=== PATIENT | female | born 1945 | race Caucasian/White ===

== ENCOUNTER 2017-01-03 11:34 | Outpatient (CLI) | payer MEDICARE, OTHER ==
--- NOTE | 2017-01-04 16:42 | Mammography Report ---
DIGITAL SCREENING MAMMOGRAM: 01/03/2017 CLINICAL INDICATION: A 71-year-old with family history of breast cancer, history of benign aspiratio n for screening. COMPARISON: 10/2015, 09/2014, 07/2013, 05/2012, 09/2010, 05/2009. TECHNIQUE: Routine CC and MLO projections were obtained of the breasts. FINDINGS: Scattered fibroglandular tissue is present within the breasts. There are no dominant mass es, suspicious microcalcifications, or secondary signs of malignancy. In comparison to the previous studies, there are no significant changes. ASSESSMENT: NO MAMMOGRAPHIC EVIDENCE OF MALIGNANCY. NO SIGNIFICANT INTERVAL CHANGES. RECOMMENDATION: Screening mammography is recommended annually. BIRADS category 1 - negative. STANDARD QUALIFYING STATEMENTS 1. This examination was reviewed with the aid of Computed-Aided Detection (CAD). 2. A negative or benign imaging report should not delay biopsy if clinically suspicious findings are present. Consider surgical consultation if warranted. More than 5% of cancers are not identified b y imaging. 3. Dense breasts may obscure an underlying neoplasm. JOB #: [id number] EXT JOB #:[id number]
== END 2017-01-03 11:35 | disposition home or self-care (01) ==
LOC: DI.S 11:34
PROVIDERS: ATTEND Physician Assistant Medical
DX: Z12.31 Encounter for screening mammogram for malignant neoplasm of breast (principal); Z80.3 Family history of malignant neoplasm of breast
CPT/HCPCS: 77067

== ENCOUNTER 2017-01-05 10:12 | Outpatient (CLI) | payer MEDICARE, OTHER ==
[2017-01-05 17:54] LABS: BASOPHILS # (AUTO) 0.1 10^3/uL (0.0-0.1); BASOPHILS % (AUTO) 1.1 %; EOSINOPHILS # (AUTO) 0.1 10^3/uL (0.0-0.7); EOSINOPHILS % (AUTO) 2.4 %; HCT - HEMATOCRIT 48.5 % (37.0-47.0); LYMPHOCYTES # (AUTO) 1.3 10^3/uL (1.5-3.5); LYMPHOCYTES % (AUTO) 30.6 %; MEAN CORPUSCULAR HEMOGLOBIN 29.2 pg (27.0-31.0); MEAN CORPUSCULAR VOLUME 88.7 fL (81.0-99.0); MEAN PLATELET VOLUME 10.5 fL (7.9-10.8); MONOCYTES # (AUTO) 0.3 10^3/uL (0.0-1.0); MONOCYTES % (AUTO) 6.5 %; NEUTROPHILS # (AUTO) 2.6 10^3/uL (1.5-6.6); NEUTROPHILS % (AUTO) 59.4 %; NUCLEATED RED BLOOD CELLS AUTO 0.1 /100WBC; RED BLOOD COUNT 5.47 10^6/uL (4.20-5.40); RED CELL DISTRIBUTION WIDTH 13.9 % (12.0-15.0); UNCORRECTED WHITE BLOOD COUNT 4.4 x10^3/uL; WHITE BLOOD COUNT 4.4 x10^3/uL (4.8-10.8)
[2017-01-05 18:47] LABS: ALBUMIN/GLOBULIN RATIO 1.5 (1.0-2.2); BILIRUBIN,TOTAL 1.1 mg/dL (0.2-1.0); BUN - BLOOD UREA NITROGEN 12 mg/dL (6-20); CALCIUM 9.4 mg/dL (8.5-10.3); CARBON DIOXIDE - CO2 24 mmol/L (21-32); CHLORIDE 109 mmol/L (101-111); CREATININE 0.8 mg/dL (0.4-1.0); GFR - MDRD 71 (>89); GLUCOSE 99 mg/dL (70-100); SODIUM 141 mmol/L (135-145); TOTAL PROTEIN 7.2 g/dL (6.7-8.2)
[2017-01-05 18:57] LABS: FERRITIN 42.1 ng/mL (11.0-306.8)
[2017-01-05 19:10] LABS: THYROID STIMULATING HORMONE 2.76 uIU/mL (0.34-5.60)
== END 2017-01-05 10:13 | disposition home or self-care (01) ==
LOC: LAB.F 10:12
PROVIDERS: ATTEND Physician Assistant Medical
DX: Z51.81 Encounter for therapeutic drug level monitoring (principal); E83.119 Hemochromatosis, unspecified; R53.83 Other fatigue; E55.9 Vitamin D deficiency, unspecified; E06.3 Autoimmune thyroiditis
CPT/HCPCS: 36415; 80053; 82306; 82728; 84443; 85025

== ENCOUNTER 2017-11-21 11:33 | Outpatient (CLI) | payer MEDICARE, OTHER ==
[2017-11-21 17:45] LABS: BASOPHILS # (AUTO) 0.1 10^3/uL (0.0-0.1); BASOPHILS % (AUTO) 1.3 %; EOSINOPHILS # (AUTO) 0.1 10^3/uL (0.0-0.7); EOSINOPHILS % (AUTO) 2.2 %; HGB - HEMOGLOBIN 15.7 g/dL (12.0-16.0); LYMPHOCYTES # (AUTO) 1.4 10^3/uL (1.5-3.5); LYMPHOCYTES % (AUTO) 29.5 %; MEAN CORPUSCULAR HEMOGLOBIN 29.6 pg (27.0-31.0); MEAN CORPUSCULAR HGB CONC 33.2 g/dL (32.0-36.0); MEAN CORPUSCULAR VOLUME 89.1 fL (81.0-99.0); MEAN PLATELET VOLUME 9.8 fL (7.9-10.8); MONOCYTES # (AUTO) 0.3 10^3/uL (0.0-1.0); MONOCYTES % (AUTO) 6.4 %; NEUTROPHILS # (AUTO) 2.9 10^3/uL (1.5-6.6); NEUTROPHILS % (AUTO) 60.6 %; PLT - PLATELET COUNT 191 10^3/uL (130-450); RED CELL DISTRIBUTION WIDTH 14.1 % (12.0-15.0); WHITE BLOOD COUNT 4.8 x10^3/uL (4.8-10.8)
[2017-11-21 18:09] LABS: HB2 TOTAL 16.9 g/dL; HEMOGLOBIN A1C 0.54 g/dL; HEMOGLOBIN A1C % 5.1 % (4.6-6.2)
[2017-11-21 18:15] LABS: THYROID STIMULATING HORMONE 2.57 uIU/mL (0.34-5.60)
[2017-11-21 18:16] LABS: ALBUMIN 3.8 g/dL (3.2-5.5); ALBUMIN/GLOBULIN RATIO 1.2 (1.0-2.2); ALKALINE PHOSPHATASE 49 IU/L (42-121); ALT ALANINE AMINOTRANSFERASE 27 IU/L (10-60); AST ASPARTATE AMINOTRANSFERASE 20 IU/L (10-42); BILIRUBIN,TOTAL 0.9 mg/dL (0.2-1.0); BUN - BLOOD UREA NITROGEN 15 mg/dL (6-20); CALCIUM 9.3 mg/dL (8.5-10.3); CARBON DIOXIDE - CO2 27 mmol/L (21-32); CHLORIDE 107 mmol/L (101-111); CHOL/HDL RATIO 3.6 (<4.4); CHOLESTEROL 184 mg/dL; CREATININE 0.9 mg/dL (0.4-1.0); GFR - MDRD 62 (>89); GLUCOSE 90 mg/dL (70-100); HDL CHOLESTEROL 51 mg/dL; LDL CHOLESTEROL,CALCULATED 100 mg/dL; SODIUM 139 mmol/L (135-145); TOTAL PROTEIN 7.1 g/dL (6.7-8.2); VLDL CHOLESTEROL 33 mg/dL
== END 2017-11-21 11:34 | disposition home or self-care (01) ==
LOC: LAB.F 11:33
PROVIDERS: ATTEND Physician Assistant Medical
DX: E78.5 Hyperlipidemia, unspecified (principal); Z51.81 Encounter for therapeutic drug level monitoring; E83.119 Hemochromatosis, unspecified; Z79.899 Other long term (current) drug therapy; R73.9 Hyperglycemia, unspecified; E06.3 Autoimmune thyroiditis
CPT/HCPCS: 36415; 80053; 80061; 82728; 83036; 83721; 84443; 85025

== ENCOUNTER 2018-01-03 13:03 | Outpatient (CLI) | payer MEDICARE, OTHER ==
--- NOTE | 2018-01-03 16:26 | DEXA Report ---
Procedure Date: 01/03/2018 Accession Number: [id number] / [id number] Procedure: DEX - Dexa Spine and/or Hip CPT Code: FULL RESULT: EXAM: Dexa Spine and/or Hip DATE: 01/03/2018 1:36 PM CLINICAL HISTORY: POSTMENOPAUSAL STATUS TECHNIQUE: Dual energy x-ray absorptiometry (DXA) was performed on a [employer] System. Regions measured are the AP Spine, femoral neck, and if needed forearm. COMPARISON: None. In accordance with the International Society for Clinical Densitometry (ISCD) guidelines, data from previous exams may be reanalyzed using current recommendations and techniques. This is done to allow a more accurate basis for comparison with the current study. FINDINGS: The data for the lumbar spine is as follows: BMD (g/cm/cm) T-SCORE Z-SCORE REGION L1 1.046 -0.7 -0.1 L2 1.046 -1.3 -0.7 L3 1.164 -0.3 0.3 L4 1.237 0.3 0.9 TOTAL 1.127 -0.4 0.1 NOTE: All evaluable vertebrae are used for classification The data for the hip is as follows: BMD (g/cm/cm) T-SCORE Z-SCORE REGION Neck 0.827 -1.5 -0.5 TOTAL 0.893 -0.9 -0.2 NOTE: The femoral neck or total proximal femur, whichever is lowest, is used for classification. DXA RESULTS SUMMARY: Spine SCAN DATE AGE BMD CHANGE VS CHANGE VS PREVIOUS PREVIOUS % [birth year][age]03/2018 [age] 1.127 0.042* 3.9* 11/18/2015 [age] 1[age]085 * Denotes significant change at the 95% confidence level. Denotes dissimilar scan types or analysis methods. DXA RESULTS SUMMARY: Hip SCAN DATE AGE BMD CHANGE VS CHANGE VS PREVIOUS PREVIOUS % 01[birth year]03/2018 [age] 0.893 0.007 0.8 11/18/2015 70.0 0.886 * Denotes significant change at the 95% confidence level. Denotes dissimilar scan types or analysis methods. IMPRESSION: THE WHO CLASSIFICATION BASED ON THE INTERNATIONAL REFERENCE STANDARD IS OSTEOPENIA. THE FRACTURE RISK IS INCREASED. RECOMMENDATION: Patients with diagnosis of osteoporosis or osteopenia should have regular bone mineral density assessment. For those eligible for Medicare, routine testing is allowed once every 2 years. Testing frequency can be increased for patients who have rapidly progressing disease or for those who are receiving medical therapy to restore bone mass. COMMENT: World Health Organization (WHO) definitions for osteoporosis and osteopenia: NORMAL BMD: T-score at -1.0 or higher, fracture risk is low OSTEOPENIA BMD: T-score between -1.0 and -2.5, fracture risk is increased. OSTEOPOROSIS BMD: T-score at -2.5 or lower, fracture risk is high. National Osteoporosis Foundation recommends: 1. Obtain adequate dietary calcium (at least 1200 mg per day) and vitamin D (400-800 international units per day). 2. Participate, as appropriate, in regular weightbearing and muscle-strengthening exercise. 3. Avoid tobacco use and reduce alcohol and caffeine intake. 4. For more detailed information see the website at www.NOF.org.
== END 2018-01-03 13:04 | disposition home or self-care (01) ==
LOC: DI 13:03
PROVIDERS: ATTEND Physician Assistant Medical
DX: M85.89 Other specified disorders of bone density and structure, multiple sites (principal); Z78.0 Asymptomatic menopausal state
CPT/HCPCS: 77080

== ENCOUNTER 2018-01-09 11:54 | Outpatient (CLI) | payer MEDICARE, OTHER ==
--- NOTE | 2018-01-10 17:20 | Mammography Report ---
Procedure Date: 01/09/2018 Accession Number: [id number] / [id number] Procedure: MGN - Screening Mammo Dig Bilat CPT Code: FULL RESULT: EXAM: Screening Mammo Dig Bilat DATE: 01/09/2018 12:12 PM CLINICAL HISTORY: 72-year-old female with history of early menses and family history of breast cancer in the mother at age 75 and sister at age 55. The patient had a breast biopsy in 2004 with benign pathology. TECHNIQUE: Bilateral CC and MLO views were obtained. COMPARISON: 01/03/2017, 11/10/2015, 10/07/2014, 08/21/2013. FINDINGS: The breasts demonstrate scattered fibroglandular densities bilaterally. There are typically benign coarse bilateral calcifications. No suspicious masses, clustered microcalcifications, or regions of architectural distortion are identified. IMPRESSION: Benign findings RECOMMENDATION: Routine annual screening unless otherwise clinically indicated. BIRADS CATEGORY 2: Benign findings STANDARD QUALIFYING STATEMENTS: 1. This examination was reviewed with the aid of Computer-Aided Detection (CAD). 2. A negative or benign imaging report should not delay biopsy if clinically suspicious findings are present. Consider surgical consultation if warrented. More than 5% of cancers are not identified by imaging. 3. Dense breasts may obscure an underlying neoplasm.
== END 2018-01-09 11:55 | disposition home or self-care (01) ==
LOC: DI.N 11:54
PROVIDERS: ATTEND Physician Assistant Medical
DX: Z12.31 Encounter for screening mammogram for malignant neoplasm of breast (principal); Z80.3 Family history of malignant neoplasm of breast
CPT/HCPCS: 77067

== ENCOUNTER 2018-01-24 11:59 | Outpatient (CLI) | payer MEDICARE, OTHER ==
--- NOTE | 2018-01-24 16:10 | MRI Report ---
Reason: CHRONIC LT HIP PAIN Procedure Date: 01/24/2018 Accession Number: [id number] / [id number] Procedure: MRI - Hip LT W/O CPT Code: FULL RESULT: EXAM: LEFT HIP MRI WITHOUT CONTRAST EXAM DATE: 01/24/2018 01:05 PM. CLINICAL HISTORY: Chronic left hip pain. COMPARISON: None. TECHNIQUE: Multiplanar, multisequence T1-weighted and fluid-sensitive, small clwrg-sf-kxdm sequences of the hip and large pqxad-lj-yijp sequences of the pelvis without contrast. Other: None. FINDINGS: Bones: No fractures or subluxations. No marrow edema or bone lesions. Left Hip: No acetabular retroversion. Femoral head/neck offset is within normal limits. No effusion or loose bodies. The articular cartilage is intact. The labrum is unremarkable on this nonarthrographic study. The ligamentum teres is intact. Other Joints: The visualized lumbar spine, sacroiliac joints, symphysis pubis, and contralateral hip are unremarkable. Musculature: No edema or fatty atrophy. The gluteus medius and minimus tendons are normal. The visualized hamstring tendons are normal. The ischiofemoral space is normal. Pelvic Cavity: No adenopathy, no masses. No free pelvic fluid. No adnexal masses. Submucosal anterior left lateral myoma. Series 301 image 28. Other: The visualized sciatic nerves are unremarkable. Lumbosacral plexus also normal. No bursitis. The subcutaneous tissues are unremarkable. IMPRESSION: 1. Left hip has a normal appearance. No fractures, no erosive changes. Labrum appears normal. No effusions. 2. Left lumbosacral plexus and sciatic nerve also is normal. No areas of abnormal increased T2 signal or nodularity. RADIA MUSCULOSKELETAL RADIOLOGY SECTION
== END 2018-01-24 12:00 | disposition home or self-care (01) ==
LOC: DI 11:59
PROVIDERS: ATTEND Orthopaedic Surgery
DX: M25.552 Pain in left hip (principal)

== ENCOUNTER 2018-09-09 11:28 | Outpatient (CLI) | payer MEDICARE, OTHER ==
[2018-09-09 18:39] LABS: ALBUMIN 4.1 g/dL (3.2-5.5); ALBUMIN/GLOBULIN RATIO 1.4 (1.0-2.2); BILIRUBIN,TOTAL 1.2 mg/dL (0.2-1.0); CALCIUM 9.5 mg/dL (8.5-10.3); CREATININE 0.8 mg/dL (0.4-1.0); TOTAL PROTEIN 7.1 g/dL (6.7-8.2)
[2018-09-09 18:44] LABS: THYROID STIMULATING HORMONE 3.53 uIU/mL (0.34-5.60)
== END 2018-09-09 11:29 | disposition home or self-care (01) ==
LOC: LAB.F 11:28
PROVIDERS: ATTEND Physician Assistant Medical
DX: Z51.81 Encounter for therapeutic drug level monitoring (principal); E83.119 Hemochromatosis, unspecified; E06.3 Autoimmune thyroiditis
CPT/HCPCS: 36415; 80053; 82728; 84443

== ENCOUNTER 2019-01-15 11:09 | Outpatient (CLI) | payer MEDICARE, OTHER ==
--- NOTE | 2019-01-15 14:07 | Mammography Report ---
Reason: SCREENING MAMMO Procedure Date: 01/15/2019 Accession Number: [id number] / [id number] Procedure: MGS - Screening Mammo Dig Bilat CPT Code: FULL RESULT: EXAM: Screening Mammo Dig Bilat DATE: 01/15/2019 11:32 AM CLINICAL HISTORY: Routine screening. No reported personal history of breast cancer. Family history breast cancer mother age 80 sister age 60. TECHNIQUE: (B) - Bilateral CC and MLO views were obtained. COMPARISON: 01/09/2018 through 10/07/2014 PARENCHYMAL PATTERN: (A) - The breasts demonstrate scattered fibroglandular densities bilaterally. FINDINGS: Bilateral breasts: Stable oval mass a circumscribed margins 12:00 left breast. There are no suspicious masses, calcifications, or areas of distortion. IMPRESSION: Benign findings. BI-RADS category 2. RECOMMENDATION: (ANNUAL) - Recommend routine annual screening mammography. Given family history, patient may be at increased risk for development of breast cancer. Formal risk assessment with a genetic counselor should be considered; patient may benefit from advanced screening practices and/or risk reduction strategies if there is sufficient assessed risk. BI-RADS CATEGORY: (2) - Benign Findings. STANDARD QUALIFYING STATEMENTS: 1. This examination was not reviewed with the aid of Computer-Aided Detection (CAD). 2. A negative or benign imaging report should not preclude biopsy if clinically suspicious findings are present. 3. Dense breasts may obscure an underlying neoplasm. 4. This examination was reviewed without the aid of 3D breast imaging (tomosynthesis).
== END 2019-01-15 11:10 | disposition home or self-care (01) ==
LOC: DI.S 11:09
DX: Z12.31 Encounter for screening mammogram for malignant neoplasm of breast (principal); Z80.3 Family history of malignant neoplasm of breast
CPT/HCPCS: 77067

== ENCOUNTER 2019-09-19 07:00 | Outpatient (CLI) | payer MEDICARE, OTHER ==
[2019-09-19 12:56] LABS: BASOPHILS # (AUTO) 0.1 10^3/uL (0.0-0.1); BASOPHILS % (AUTO) 1.1 %; EOSINOPHILS # (AUTO) 0.1 10^3/uL (0.0-0.7); EOSINOPHILS % (AUTO) 2.2 %; HGB - HEMOGLOBIN 15.8 g/dL (12.0-16.0); LYMPHOCYTES # (AUTO) 1.4 10^3/uL (1.5-3.5); LYMPHOCYTES % (AUTO) 30.4 %; MEAN CORPUSCULAR HEMOGLOBIN 29.2 pg (27.0-31.0); MEAN CORPUSCULAR HGB CONC 32.4 g/dL (32.0-36.0); MEAN CORPUSCULAR VOLUME 90.2 fL (81.0-99.0); MEAN PLATELET VOLUME 11.2 fL (7.9-10.8); MONOCYTES # (AUTO) 0.3 10^3/uL (0.0-1.0); MONOCYTES % (AUTO) 7.6 %; NEUTROPHILS # (AUTO) 2.6 10^3/uL (1.5-6.6); NEUTROPHILS % (AUTO) 58.3 %; PLT - PLATELET COUNT 211 10^3/uL (130-450); RED BLOOD COUNT 5.41 10^6/uL (4.20-5.40); RED CELL DISTRIBUTION WIDTH 13.5 % (12.0-15.0); WHITE BLOOD COUNT 4.5 x10^3/uL (4.8-10.8)
[2019-09-19 13:27] LABS: ALBUMIN 4.3 g/dL (3.2-5.5); ALBUMIN/GLOBULIN RATIO 1.5 (1.0-2.2); ALKALINE PHOSPHATASE 53 IU/L (42-121); ALT ALANINE AMINOTRANSFERASE 31 IU/L (10-60); AST ASPARTATE AMINOTRANSFERASE 22 IU/L (10-42); BILIRUBIN,TOTAL 1.2 mg/dL (0.2-1.0); BUN - BLOOD UREA NITROGEN 15 mg/dL (6-20); CALCIUM 9.3 mg/dL (8.5-10.3); CARBON DIOXIDE - CO2 27 mmol/L (21-32); CHLORIDE 107 mmol/L (101-111); CHOL/HDL RATIO 4.7 (<4.4); CHOLESTEROL 200 mg/dL; CREATININE 0.9 mg/dL (0.4-1.0); GLUCOSE 96 mg/dL (70-100); HDL CHOLESTEROL 43 mg/dL; LDL CHOLESTEROL,CALCULATED 134 mg/dL; LDL/HDL RATIO 3.1 (<4.4); SODIUM 140 mmol/L (135-145); TOTAL PROTEIN 7.2 g/dL (6.7-8.2); VLDL CHOLESTEROL 23 mg/dL
[2019-09-19 13:35] LABS: FERRITIN 60.5 ng/mL (11.0-306.8)
== END 2019-09-19 23:59 | disposition home or self-care (01) ==
LOC: LAB.WCP 07:00
PROVIDERS: ATTEND Registered Nurse
DX: K52.9 Noninfective gastroenteritis and colitis, unspecified (principal); Z87.19 Personal history of other diseases of the digestive system; E78.5 Hyperlipidemia, unspecified; R73.9 Hyperglycemia, unspecified; F32.9 Major depressive disorder, single episode, unspecified; F41.9 Anxiety disorder, unspecified
CPT/HCPCS: 36415; 80053; 80061; 82728; 83721; 84443; 85025

== ENCOUNTER 2019-12-12 14:49 | Outpatient (CLI) | payer MEDICARE, OTHER ==
--- NOTE | 2019-12-12 16:57 | XRAY Report ---
PROCEDURE: Knee 4 View BILAT INDICATIONS: KNEE JOINT PAIN TECHNIQUE: 4 views of the bilateral knee(s) were acquired. COMPARISON: None. FINDINGS: Bones: No fractures or dislocations. No suspicious bony lesions. There is moderate bilateral media l compartment narrowing. In addition, mild to moderate bilateral patellofemoral compartment narrowing is present. Small suprapatellar periarticular osteophytes are present slightly more prominent on the right. There are no areas of erosion present. Soft tissues: Mild bilateral joint effusions. No suspicious soft tissue calcifications. IMPRESSION: Moderate bilateral medial and mild to moderate patellofemoral compartment as above sugge stive of osteoarthritis. Reviewed by: Clary Fitzgerald MD on 12/12/2019 4:56 PM PDT Approved by: Clary Fitzgerald MD on 12/12/2019 4:56 PM PDT Station ID: [id number]
--- NOTE | 2019-12-12 16:58 | XRAY Report ---
PROCEDURE: Hip w/Pelvis 2-3V LT INDICATIONS: HIP PAIN,KNEE JOINT PAIN,ROTATOR CUFF SYNDROME TECHNIQUE: AP pelvis with lateral view(s) of the left hip(s). COMPARISON: MRI hip 01/24/2019 FINDINGS: Bones: No fractures or dislocations. Pelvic ring appears intact. No suspicious bony lesions. Mild bilateral degenerative hip joint space narrowing. Degenerative changes are present within the lower l umbar spine. Soft tissues: The visualized bowel gas pattern is normal. No suspicious soft tissue ca lcifications. IMPRESSION: Arthritic changes within the hips and lumbar spine as above. Reviewed by: Clary Fitzgerald MD on 12/12/2019 4:57 PM PDT Approved by: Clary Fitzgerald MD on 12/12/2019 4:57 PM PDT Station ID: [id number]
--- NOTE | 2019-12-12 17:13 | XRAY Report ---
PROCEDURE: Shoulder 3 View RT INDICATIONS: ROTATOR CUFF SY TECHNIQUE: 3 views of the shoulder were acquired. COMPARISON: None. FINDINGS: Bones: No fractures or dislocations. Mild spurring at the inferior glenoid. No suspicious bony lesio ns. Visualized ribs appear intact. Soft tissues: No suspicious soft tissue calcifications. IMPRESSION: 1. Mild degenerative changes in the glenohumeral joint. Reviewed by: Zabrina Roy MD on 12/12/2019 5:11 PM PDT Approved by: Zabrina Roy MD on 12/12/2019 5:11 PM PDT Station ID: [id number]
== END 2019-12-12 14:50 | disposition home or self-care (01) ==
LOC: DI.S 14:49
PROVIDERS: ATTEND Orthopaedic Surgery
DX: M19.011 Primary osteoarthritis, right shoulder (principal); M75.100 Unspecified rotator cuff tear or rupture of unspecified shoulder, not specified as traumatic; M17.0 Bilateral primary osteoarthritis of knee; M16.0 Bilateral primary osteoarthritis of hip; M47.816 Spondylosis without myelopathy or radiculopathy, lumbar region

== ENCOUNTER 2019-12-19 12:25 | Outpatient (CLI) | payer MEDICARE, OTHER ==
--- NOTE | 2019-12-22 07:58 | Ultrasound Report ---
LIMITED ULTRASOUND OF LEFT BREAST: 12/19/2019 CLINICAL: Focal left breast pain. Comparison is made to exam dated: 12/19/2019 mammogram - [facility]. Ultrasound of the left breast 3 o'clock region was performed on the area of interest. Dias scale im ages of the real-time examination were reviewed. IMPRESSION: NEGATIVE There is no sonographic evidence of malignancy. There is no mammographic or sonographic abnormality seen in the left breast to correspond with the pa in, however, clinical followup is recommended. A 1 year screening mammogram is recommended. This exam was interpreted at Station ID: [id number]. Electronically Signed By: Maria Eugenia [email or web address]:12/19/2019 13:59:43 Ultrasound BI-RADS: 1 Negative BI-RADS CATEGORY: (1) - 1 RECOMMENDATION: (ANNUAL) - Recommend routine annual screening mammography. [id number] 1 year screening LATERALITY: (B)
--- NOTE | 2019-12-22 07:58 | Mammography Report ---
BILATERAL DIGITAL DIAGNOSTIC MAMMOGRAM 3D/2D: 12/19/2019 CLINICAL: Diffuse left breast pain. Comparison is made to exams dated: 01/15/2019 mammogram, 01/09/2018 mammogram, 01/03/2017 mammogram, 10/26 mammogram, 08/21/2013 mammogram, and 06/07/2012 mammogram - [facility]. There are scattered fibroglandular elements in both breasts. No significant masses, calcifications, or other findings are seen in either breast. IMPRESSION: INCOMPLETE: NEEDS ADDITIONAL IMAGING EVALUATION There is no mammographic abnormality seen in the left breast to correspond with the pain, however, ta rgeted ultrasound of the left breast is recommended and will be performed immediately following this exam. This exam was interpreted at Station ID: [id number]. NOTE: For mammograms, a report in lay terms will be sent to the patient. Approximately 15% of breast malignancies will not be visualized mammographically. In the management of a palpable breast mass, a negative mammogram must not discourage biopsy of a clinically suspicious lesion. Electronically Signed By: Maria Eugenia Bragg M.D. lk/:12/19/2019 13:36:02 ACR BI-RADS Category 0: Incomplete 3340F PARENCHYMAL PATTERN: (A) - The breast(s) demonstrate(s) scattered fibroglandular densities. BI-RADS CATEGORY: (0) - 0 Ultrasound [id number] Immediate follow-up LATERALITY: (B)
== END 2019-12-19 12:26 | disposition home or self-care (01) ==
LOC: DI 12:25
PROVIDERS: ATTEND Registered Nurse
DX: N64.4 Mastodynia (principal)
CPT/HCPCS: 76642; 77066

== ENCOUNTER 2020-01-12 14:51 | Outpatient (CLI) | payer MEDICARE, OTHER ==
--- NOTE | 2020-01-12 16:41 | Ultrasound Report ---
PROCEDURE: Head or Neck Soft Tissue INDICATIONS: HASHIMOTOS DISEASE F/U TECHNIQUE: Real-time scanning was performed of the thyroid gland, with image documentation. COMPARISON: None. FINDINGS: Right: Right thyroid lobe measures 7.9 x 3.7 x 4.4 cm. It is heterogeneous in appearance with increa sed vascularity. Multiple areas of nodular lobulation are present. Left: Left lobe measures 7.7 x 2.5 x 3.0 cm. It is heterogeneous in appearance with increased nodula rity. Multiple areas of nodular lobulation are present. Isthmus: Isthmus measures 7 mm. IMPRESSION: Enlarged, increased vascularity of the thyroid gland bilaterally with areas of diffuse, lobular nodul ar echotexture. 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 Reviewed by: Clary Fitzgerald MD on 01/12/2020 4:39 PM PDT Approved by: Clary Fitzgerald MD on 01/12/2020 4:39 PM PDT Station ID: [id number]
== END 2020-01-12 14:52 | disposition home or self-care (01) ==
LOC: DI 14:51
PROVIDERS: ATTEND Internal Medicine Endocrinology, Diabetes & Metabolism
DX: E06.3 Autoimmune thyroiditis (principal)
CPT/HCPCS: 76536

== ENCOUNTER 2020-02-27 09:12 | Outpatient (CLI) | payer MEDICARE, OTHER ==
[2020-02-27 15:56] LABS: THYROID STIMULATING HORMONE 1.49 uIU/mL (0.34-5.60)
[2020-02-27 15:57] LABS: FREE T4 (FREE THYROXINE) 0.73 ng/dL (0.58-1.64)
== END 2020-02-27 09:13 | disposition home or self-care (01) ==
LOC: LAB.S 09:12
PROVIDERS: ATTEND Internal Medicine Endocrinology, Diabetes & Metabolism
DX: E06.3 Autoimmune thyroiditis (principal)
CPT/HCPCS: 36415; 84439; 84443

== ENCOUNTER 2020-05-04 11:06 | Outpatient (CLI) | payer MEDICARE, OTHER ==
[2020-05-04 15:53] LABS: THYROID STIMULATING HORMONE 2.58 uIU/mL (0.34-5.60)
[2020-05-04 15:55] LABS: FREE T4 (FREE THYROXINE) 0.79 ng/dL (0.58-1.64)
== END 2020-05-04 11:07 | disposition home or self-care (01) ==
LOC: LAB.S 11:06
PROVIDERS: ATTEND Internal Medicine Endocrinology, Diabetes & Metabolism
DX: E06.3 Autoimmune thyroiditis (principal)
CPT/HCPCS: 36415; 84439; 84443

== ENCOUNTER 2020-09-08 15:56 | Outpatient (CLI) | payer MEDICARE, OTHER ==
--- NOTE | 2020-09-08 18:11 | Ultrasound Report ---
PROCEDURE: Head or Neck Soft Tissue INDICATIONS: HYPOTHYROIDISM TECHNIQUE: Real-time scanning was performed of the thyroid gland, with image documentation. COMPARISON: 01/12/2020 FINDINGS: Right: Thyroid lobe measures 7.9 x 3.5 x 3.3 cm. Left: Thyroid lobe measures 7.8 x 2.4 x 2.7 cm. Isthmus: 7 mm thick. Diffusely heterogeneous thyroid parenchymal echotexture is seen. Lobulated thyroid contour is also se en. No discrete thyroid nodule is identified. IMPRESSION: Enlarged thyroid gland with diffusely heterogeneous thyroid parenchymal echotexture, incr eased vascularity and lobular thyroid contour not significantly changed from prior study. 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 Reviewed by: González Fernandes MD on 09/08/2020 5:10 PM AKSVEN Approved by: González Fernandes MD on 09/08/2020 5:10 PM AKSVEN Station ID: [id number]
== END 2020-09-08 15:57 | disposition home or self-care (01) ==
LOC: DI 15:56
PROVIDERS: ATTEND Internal Medicine Endocrinology, Diabetes & Metabolism
DX: E03.9 Hypothyroidism, unspecified (principal); E04.9 Nontoxic goiter, unspecified

== ENCOUNTER 2020-10-14 09:36 | Outpatient (CLI) | payer MEDICARE, OTHER ==
--- NOTE | 2020-10-14 09:59 | XRAY Report ---
PROCEDURE: Cervical Spine 2 View INDICATIONS: S/P CERVICAL SPINAL FUSION TECHNIQUE: 2 view(s) of the cervical spine were acquired. COMPARISON: CT cervical spine, 08/31/2014. FINDINGS: Bones: No fractures or dislocations to the C7 level. The lateral masses of C1 appear intact on the odontoid view. No suspicious bony lesions. There are discectomies at C4-C5, C5-C6 and C6-C7. Anteri or spinal fusion at C4-C7. There is straightening of cervical curvature but normal cervical alignment . Mild degenerative disc disease is present at C3-C4. There is moderate bilateral facet arthropathy , pronounced at C2-C3 and C3-C4. Soft tissues: No prevertebral soft tissue swelling. IMPRESSION: 1. Degenerative and postsurgical changes in cervical spine as described. 2. Straightening of cervical curvature. Reviewed by: Ayesha Masters MD on 10/14/2020 9:58 AM PDT Approved by: Ayesha Masters MD on 10/14/2020 9:58 AM PDT Station ID: [id number]
== END 2020-10-14 09:37 | disposition home or self-care (01) ==
LOC: DI.S 09:36
PROVIDERS: ATTEND Neurological Surgery
DX: M47.812 Spondylosis without myelopathy or radiculopathy, cervical region (principal); M50.31 Other cervical disc degeneration, high cervical region; Z98.1 Arthrodesis status

== ENCOUNTER 2020-12-02 14:32 | Outpatient (CLI) | payer MEDICARE, OTHER | END 2020-12-02 14:33 | disposition home or self-care (01) | LOC: LAB.S 14:32 | PROVIDERS: ATTEND Registered Nurse | DX: E06.3 Autoimmune thyroiditis (principal); D75.9 Disease of blood and blood-forming organs, unspecified; M70.62 Trochanteric bursitis, left hip; M25.552 Pain in left hip | CPT/HCPCS: 36415; 82728 ==

== ENCOUNTER 2021-03-01 10:49 | Outpatient (CLI) | payer MEDICARE, OTHER ==
--- NOTE | 2021-03-01 14:38 | DEXA Report ---
PROCEDURE: Dexa Spine and/or Hip INDICATIONS: POSTMENOPAUSAL TECHNIQUE: Dual energy x-ray absorptiometry (DXA) was performed on a [employer] System. Regions measur ed are the AP Spine, femoral neck, and if needed forearm. COMPARISON: None. FINDINGS: Lumbar Spine: Bone Mineral Density 1.066 g/cm/cm,T score -0.9, normal Left Femoral Neck: Bone Mineral Density 0.86 to g/cm/cm, T score -1.2, osteopenia (T score greater or equal to -1.0: NORMAL) (T score from -1.1 to -2.4: OSTEOPENIA) (T score less than or equal to -2.5 to: OSTEOPOROSIS) Impression: Osteopenia. Patients with diagnosis of osteoporosis or osteopenia should have regular bone mineral density assess ment. For those eligible for Medicare, routine testing is allowed once every 2 years. Testing frequ ency can be increased for patients who have rapidly progressing disease or for those who are receivin g medical therapy to restore bone mass. Reviewed by: Evangelista Moreno MD on 03/01/2021 2:37 PM PDT Approved by: Evangelista Moreno MD on 03/01/2021 2:37 PM PDT Station ID: [id number]
== END 2021-03-01 10:50 | disposition home or self-care (01) ==
LOC: DI 10:49
PROVIDERS: ATTEND Registered Nurse
DX: M85.88 Other specified disorders of bone density and structure, other site (principal); Z78.0 Asymptomatic menopausal state

== ENCOUNTER 2021-03-02 11:15 | Outpatient (CLI) | payer MEDICARE, OTHER ==
--- NOTE | 2021-03-03 11:50 | Mammography Report ---
BILATERAL DIGITAL SCREENING MAMMOGRAM 3D/2D WITH EXAGGERATED CC: 03/02/2021 CLINICAL: Family history of breast cancer. Comparison is made to exams dated: 12/19/2019 mammogram, 01/15/2019 mammogram, and 01/09/2018 mammogram - [facility]. There are scattered fibroglandular elements in both breasts. No significant masses, calcifications, or other findings are seen in either breast. There has been no significant interval change. IMPRESSION: NEGATIVE There is no mammographic evidence of malignancy. A 1 year screening mammogram is recommended. This exam was interpreted at Station ID: [id number]. NOTE: For mammograms, a report in lay terms will be sent to the patient. Approximately 15% of breast malignancies will not be visualized mammographically. In the management of a palpable breast mass, a negative mammogram must not discourage biopsy of a clinically suspicious lesion. Electronically Signed By: Stepan Fields M.D. ddp/penrad:03/02/2021 16:44:00 ACR BI-RADS Category 1: Negative 3341F PARENCHYMAL PATTERN: (A) - The breast(s) demonstrate(s) scattered fibroglandular densities. BI-RADS CATEGORY: (1) - 1 RECOMMENDATION: (ANNUAL) - Recommend routine annual screening mammography. [id number] 1 year screening LATERALITY: (B)
== END 2021-03-02 11:16 | disposition home or self-care (01) ==
LOC: DI.S 11:15
PROVIDERS: ATTEND Registered Nurse
DX: Z12.31 Encounter for screening mammogram for malignant neoplasm of breast (principal); Z80.3 Family history of malignant neoplasm of breast

== ENCOUNTER 2021-11-04 09:25 | Outpatient (CLI) | payer MEDICARE, OTHER ==
[2021-11-04 15:57] LABS: BASOPHILS # (AUTO) 0.1 10^3/uL (0.0-0.1); BASOPHILS % (AUTO) 1.5 %; EOSINOPHILS # (AUTO) 0.1 10^3/uL (0.0-0.7); EOSINOPHILS % (AUTO) 3.5 %; HCT - HEMATOCRIT 48.9 % (37.0-47.0); HGB - HEMOGLOBIN 15.7 g/dL (12.0-16.0); LYMPHOCYTES # (AUTO) 1.1 10^3/uL (1.5-3.5); LYMPHOCYTES % (AUTO) 26.1 %; MEAN CORPUSCULAR HEMOGLOBIN 28.8 pg (27.0-31.0); MEAN CORPUSCULAR HGB CONC 32.1 g/dL (32.0-36.0); MEAN CORPUSCULAR VOLUME 89.6 fL (81.0-99.0); MEAN PLATELET VOLUME 11.8 fL (7.9-10.8); MONOCYTES # (AUTO) 0.3 10^3/uL (0.0-1.0); MONOCYTES % (AUTO) 6.5 %; NEUTROPHILS # (AUTO) 2.5 10^3/uL (1.5-6.6); NEUTROPHILS % (AUTO) 62.2 %; PLT - PLATELET COUNT 200 10^3/uL (130-450); RED BLOOD COUNT 5.46 10^6/uL (4.20-5.40); RED CELL DISTRIBUTION WIDTH 13.7 % (12.0-15.0)
[2021-11-04 16:40] LABS: ALBUMIN 4.3 g/dL (3.2-5.5); ALBUMIN/GLOBULIN RATIO 1.5 (1.0-2.2); ALKALINE PHOSPHATASE 64 IU/L (42-121); ALT ALANINE AMINOTRANSFERASE 26 IU/L (10-60); AST ASPARTATE AMINOTRANSFERASE 20 IU/L (10-42); BILIRUBIN,TOTAL 0.8 mg/dL (0.2-1.0); BUN - BLOOD UREA NITROGEN 18 mg/dL (6-20); CALCIUM 9.2 mg/dL (8.5-10.3); CARBON DIOXIDE - CO2 26 mmol/L (21-32); CHLORIDE 108 mmol/L (101-111); CHOL/HDL RATIO 3.8 (<4.4); CHOLESTEROL 204 mg/dL; CREATININE 0.9 mg/dL (0.4-1.0); GFR - MDRD 61 (>89); GLUCOSE 102 mg/dL (70-100); HDL CHOLESTEROL 54 mg/dL; LDL CHOLESTEROL,CALCULATED 126 mg/dL; LDL/HDL RATIO 2.3 (<4.4); POTASSIUM 3.9 mmol/L (3.5-5.0); SODIUM 138 mmol/L (135-145); TOTAL PROTEIN 7.1 g/dL (6.7-8.2); TRIGLYCERIDES 121 mg/dL; VLDL CHOLESTEROL 24 mg/dL
[2021-11-04 17:19] LABS: THYROID STIMULATING HORMONE 2.89 uIU/mL (0.34-5.60)
== END 2021-11-04 09:26 | disposition home or self-care (01) ==
LOC: LAB.S 09:25
PROVIDERS: ATTEND Registered Nurse
DX: Z00.00 Encounter for general adult medical examination without abnormal findings (principal); E06.3 Autoimmune thyroiditis; E78.5 Hyperlipidemia, unspecified; R73.9 Hyperglycemia, unspecified; E83.119 Hemochromatosis, unspecified; M79.7 Fibromyalgia
CPT/HCPCS: 36415; 80053; 80061; 83721; 84443; 85025

== ENCOUNTER 2022-02-20 08:00 | Outpatient (CLI) | payer MEDICARE, OTHER | END 2022-02-20 23:59 | disposition home or self-care (01) | LOC: LAB.S 08:00 | PROVIDERS: ATTEND Registered Nurse | DX: U07.1 COVID-19 (principal) ==

== ENCOUNTER 2022-03-14 15:07 | Outpatient (CLI) | payer MEDICARE, OTHER ==
--- NOTE | 2022-03-16 10:38 | Mammography Report ---
BILATERAL DIGITAL SCREENING MAMMOGRAM 3D/2D: 03/14/2022 CLINICAL: Routine screening. Family history of breast cancer. Comparison is made to exams dated: 03/02/2021 mammogram, 12/19/2019 mammogram, 01/15/2019 mammogram, an d 01/09/2018 mammogram - Merged with [facility]. There are scattered areas of fibroglandular density in both breasts (category b / 25%-50% glandular t issue). No significant masses, calcifications, or other findings are seen in either breast. There has been no significant interval change. IMPRESSION: NEGATIVE There is no mammographic evidence of malignancy. A 1 year screening mammogram is recommended. Based on the Tyrer Cuzick model (a risk assessment model) the patients lifetime risk is 7.3% and her 10 year risk is 7.3%. According to the ACR, ACS, and NCCN guidelines, an annual breast MRI exam francisco g with mammogram is recommended if the patients lifetime risk is 20% or greater. This exam was interpreted at Station ID: [id number]. NOTE: For mammograms, a report in lay terms will be sent to the patient. Approximately 15% of breast malignancies will not be visualized mammographically. In the management of a palpable breast mass, a negative mammogram must not discourage biopsy of a clinically suspicious lesion. Electronically Signed By: Cristiano haynes/miki:03/15/2022 17:29:59 ACR BI-RADS Category 1: Negative 3341F PARENCHYMAL PATTERN: (A) - The breast(s) demonstrate(s) scattered fibroglandular densities. BI-RADS CATEGORY: (1) - 1 RECOMMENDATION: (ANNUAL) - Recommend routine annual screening mammography. [id number] 1 year screening LATERALITY: (B)
== END 2022-03-14 15:08 | disposition home or self-care (01) ==
LOC: DI.S 15:07
DX: Z12.31 Encounter for screening mammogram for malignant neoplasm of breast (principal); Z80.3 Family history of malignant neoplasm of breast

== ENCOUNTER 2022-08-08 12:53 | Outpatient (CLI) | payer MEDICARE, OTHER ==
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
[2022-08-08 13:36] VITALS: BP 126/72
== END 2022-08-08 12:54 | disposition home or self-care (01) ==
LOC: SC 12:53
PROVIDERS: ATTEND Nurse Practitioner Family
DX: G47.10 Hypersomnia, unspecified (principal); R51.9 Headache, unspecified; G47.8 Other sleep disorders; R41.89 Other symptoms and signs involving cognitive functions and awareness; M26.609 Unspecified temporomandibular joint disorder, unspecified side; E66.9 Obesity, unspecified; Z68.33 Body mass index [BMI] 33.0-33.9, adult
CPT/HCPCS: 99203; G0463; 99212

== ENCOUNTER 2022-09-12 19:30 | Outpatient (CLI) | payer MEDICARE, OTHER | END 2022-09-12 19:31 | disposition home or self-care (01) | LOC: SC 19:30 | PROVIDERS: ATTEND Nurse Practitioner Family | DX: G47.10 Hypersomnia, unspecified (principal); R51.9 Headache, unspecified; G47.8 Other sleep disorders; G47.61 Periodic limb movement disorder | CPT/HCPCS: 95810 ==

== ENCOUNTER 2022-09-19 11:03 | Outpatient (CLI) | payer MEDICARE, OTHER ==
[2022-09-19 11:25] VITALS: BP 126/78
--- NOTE | 2022-09-19 11:25 | SLEEP CARE CONSULTATION ---
Information from patient questionnaire entered by Lisa Rodriguez. I have reviewed and concur with the information entered by Lisa Rodriguez. This document represents the service I personally performed and the decisions made by , Nadiya Michaels ARNP. History of Present Illness Service Date and Time: 09/19/2022 1103 Initial [place] Sleepiness Scale score: 5 (07/04/22) Current [place] Sleepiness Scale score: 3 (09/19/22) Additional HPI information: LIONEL RAPHAEL returns for follow up and results of the recently performed polysomnography. The patient was informed of the following findings: No significant sleep disordered breathing with an average AHI of 0.0 and werner oxygen saturation of 89%. Moderate PLMs. I explained the pathophysiology behind obstructive sleep apnea. Patient does not have sleep apnea and was advised how weight gain could increase the risk of developing sleep apnea in the future. I strongly encouraged the patient to lose weight. Patient has loud snoring. Snoring can be reduced by weight loss. Weight loss is best achieved with diet consult. Patient instructed to contact PCP for referral. Snoring can also be treated with an oral appliance from a dentist. Advised to check insurance coverage. In addition, an ENT evaluation can be do to see if other treatment is indicated. Patient counseled not drink alcohol less than 4 hours before bedtime as it can increase snoring and apnea. Patient was cautioned about risks of drowsy driving until sleepiness symptoms resolve. Patient denies drowsy driving. Sleep Study - Results Type of Sleep Study: Polysomnography (COMPLETED 09/12/22) Prior sleep studies: No Polysomnography/Home Sleep Study results: IMPRESSION: The quality of the study is good. The patient had slightly reduced sleep efficiency due to a few awakenings during the night. The sleep architecture was normal. Respiratory monitoring showed no sleep disordered breathing (AHI = 0.0) or hypoxia (wer[place] oxygen saturation of 89%). The patient had limited supine sleep (supine AHI = 0.0; non-supine = 0.00). Snore was very loud in intensity. There was moderate periodic leg movement of sleep not associated with sleep fragmentation. Cardiac rhythm was normal sinus rhythm without significant arrhythmia. No abnormal behavior (parasomnia) observed during the night. Allergies and Home Medications Known drug allergies: Yes (codeine) Drug allergies reviewed: Yes Home medication list reviewed: Yes (restarted Baclofen) Allergy and home medication list: Allergies codeine [Codeine] Adverse Reaction (Intermediate Emesis Physical Exam Vital signs obtained and entered by: LISA Brady MA Blood Pressure: 126/78 (LEFT ARM) Cuff size: regular Heart Rate: 75 O2 Saturation: 96 Height: 5 ft 8 in Weight: 223 lb 6.4 oz Body Mass Index: 34.0 BMI Classification: Obese Impression and Plan 1. Snoring but no significant sleep disordered breathing. Patient advised that often weight loss will reduce snoring as well as apnea risk. An oral appliance can also be used for snoring. This would require a dental consultation. Patient cautioned not to use other online appliances as can cause bite issues. [facility] and [facility] local dentist who makes oral appliances is available in office as needed. Patient is advised to check if insurance will cover. An ENT consult can also be helpful to determine if any other treatment is an option. 2. Periodic limb movement, moderate, that did not fragment patients sleep. Periodic limb movement of sleep (PLMS) is characterized by episodes of repetitive limb movements that occur during sleep and usually involve the lower limbs. The etiology is unknown. Caffeine can aggravate PLMS and should be avoided. Sleep hygiene methods can also improve sleep as well as lifestyle changes such as regular exercise. Patient was advised that no treatment is needed at this time. If symptoms increase, then further evaluation is indicated. * Follow up with PCP as needed for PLMs * Attempt to lose weight * Avoid alcohol consumption near bedtime * The patient is cautioned about driving until sleepiness is completely resolved. * Return as needed for follow up. Counseling Topics: Weight loss health impact Visit Type: In Office Time Spent with Patient (minutes): 20 Provider Statement: I spent 100% of the Face to Face Visit with the patient with greater than 50% spent counseling the patient and coordination of care.
== END 2022-09-19 11:04 | disposition home or self-care (01) ==
LOC: SC 11:03
PROVIDERS: ATTEND Nurse Practitioner Family
DX: R06.83 Snoring (principal); G47.61 Periodic limb movement disorder; E66.9 Obesity, unspecified; Z68.34 Body mass index [BMI] 34.0-34.9, adult
CPT/HCPCS: 99213; G0463; 99212

== ENCOUNTER 2023-01-17 11:32 | Outpatient (CLI) | payer MEDICARE, OTHER | END 2023-01-17 11:33 | disposition home or self-care (01) | LOC: LAB.S 11:32 | PROVIDERS: ATTEND Psychiatry & Neurology Neurology | DX: R41.3 Other amnesia (principal) | CPT/HCPCS: 36415; 82607 ==

== ENCOUNTER 2023-07-17 10:43 | Outpatient (CLI) | payer MEDICARE, OTHER ==
--- NOTE | 2023-07-19 09:44 | Mammography Report ---
BILATERAL DIGITAL SCREENING MAMMOGRAM 3D/2D: 07/17/2023 CLINICAL: Routine screening. Family history of breast cancer. Comparison is made to exams dated: 03/14/2022 mammogram, 03/02/2021 mammogram, and 12/19/2019 mammogra m - [facility]. There are scattered areas of fibroglandular density in both breasts (category b / 25%-50% glandular t issue). No significant masses, calcifications, or other findings are seen in either breast. There has been no significant interval change. IMPRESSION: NEGATIVE There is no mammographic evidence of malignancy. A 1 year screening mammogram is recommended. Based on the Tyrer Cuzick model (a risk assessment model) the patient's lifetime risk is 6.7% and her 10 year risk is 0.0%. According to the ACR, ACS, and NCCN guidelines, an annual breast MRI exam francisco g with mammogram is recommended if the patient's lifetime risk is 20% or greater. This exam was interpreted at Station ID: [id number]. NOTE: For mammograms, a report in lay terms will be sent to the patient. Approximately 15% of breast malignancies will not be visualized mammographically. In the management of a palpable breast mass, a negative mammogram must not discourage biopsy of a clinically suspicious lesion. Electronically Signed By: Maria Eugenia [email or web address]:07/18/2023 14:58:42 ACR BI-RADS Category 1: Negative 3341F PARENCHYMAL PATTERN: (A) - The breast(s) demonstrate(s) scattered fibroglandular densities. BI-RADS CATEGORY: (1) - 1 Mammogram [id number] 1 year screening LATERALITY: (B)
== END 2023-07-17 10:44 | disposition home or self-care (01) ==
LOC: DI.S 10:43
DX: Z12.31 Encounter for screening mammogram for malignant neoplasm of breast (principal); Z80.3 Family history of malignant neoplasm of breast; R92.323 Mammographic fibroglandular density, bilateral breasts

== ENCOUNTER 2023-09-05 09:12 | Outpatient (CLI) | payer MEDICARE, OTHER ==
[2023-09-05 16:16] LABS: THYROID STIMULATING HORMONE 1.97 uIU/mL (0.34-5.60)
== END 2023-09-05 09:13 | disposition home or self-care (01) ==
LOC: LAB.S 09:12
PROVIDERS: ATTEND Internal Medicine
DX: E04.9 Nontoxic goiter, unspecified (principal); Z86.39 Personal history of other endocrine, nutritional and metabolic disease
CPT/HCPCS: 36415; 84443